=== PATIENT | female | born 1950 | race Caucasian/White ===

== ENCOUNTER 2023-11-08 19:18 | Observation (INO) ==
--- NOTE | 2023-11-08 20:14 | Emergency Department Note ---
History of Present Illness General Chief complaint: Dental/Oral Stated complaint: TOOTH INFECTION, TOOTH PAIN Time Seen by Provider: 11/08/23 19:37 History of Present Illness Maximum Pain Intensity: 8 This is a 72-year-old female that presents to the emergency department via private vehicle with complaints of "left-sided facial pain". The patient notes that over the past few days, beginning about 2 nights ago she has been experiencing left-sided facial pain and points to tooth #19 as location of discomfort. She denies any known trauma or injury. She states that she had a follow-up today with her dentist and was informed that she would need a root canal and is currently in search of an mate fourth. She took the start of a Medrol Dosepak and amoxicillin that was prescribed earlier today around 3 PM. She notes that despite this medicine the pain has continued. She also took a total of 2 oxycodone, last of which was around 3:30 PM with minimal relief. Patient notes that the pain continues to rise. Patient notes a history of latex allergy, Zanaflex allergy, tonsillectomy/adenoidectomy 1958, ORIF procedures, tethered cord, pulmonary fibrosis, asthma. No anticoagulant use. Home Medications Medication Instructions Recorded Confirmed Type Magnesium L Theonate 2,100 mg PO QAM 11/09/23 11/09/23 History albuterol sulfate 90 mcg/actuation 1 puff inhalation Q4 PRN Shortness 11/09/23 11/09/23 History aerosol inhaler Of Breath Or Wheezing bisoprolol fumarate 10 mg tablet 10 mg PO HS 11/09/23 11/09/23 History cholecalciferol (vitamin D3) 125 125 mcg PO DAILY 11/09/23 11/09/23 History mcg (5,000 unit) tablet (Vitamin D3) cyclobenzaprine 10 mg tablet 20 mg PO HS 11/09/23 11/09/23 History fluticasone furoate 100 1 ea inhalation DAILY 11/09/23 11/09/23 History mcg-vilanterol 25 mcg/dose inhalation powder (Breo Ellipta) gabapentin 300 mg capsule 300 mg PO BID 11/09/23 11/09/23 History gabapentin 300 mg capsule 600 mg PO QPM 11/09/23 11/09/23 History magnesium glycinate 100 mg (as 0 mg PO DAILY 11/09/23 11/09/23 History glycinate) tablet (Mag Glycinate) melatonin 10 mg tablet 10 mg PO HS 11/09/23 11/09/23 History naproxen sodium 220 mg tablet 220 mg PO BID 11/09/23 11/09/23 History (Aleve) omeprazole 20 mg capsule,delayed 20 mg PO DAILY 11/09/23 11/09/23 History release rosuvastatin 10 mg tablet 10 mg PO 3XWK 11/09/23 11/09/23 History tramadol 50 mg tablet 50 mg PO TID PRN Pain 11/09/23 11/09/23 History Past Med/Surg History Problem List (Updated 11/09/23 @ 03:13 by Anish Nelson PA-C) Phlegmon (Acute) Periapical abscess (Acute) Intractable pain (Acute) Swelling of left side of face (Acute) Dental infection (Acute) Social History Smoking Status: Never smoker Preferred Language: Belizean Feels Safe at Home: Yes Review of Systems A total of 10 systems reviewed and were otherwise negative Physical Exam Vital Signs Vital Signs - 24 hr 11/08/23 19:21 11/08/23 20:27 11/08/23 22:10 Temperature 36.6 C Temperature Source Temporal Artery Scan Pulse Rate 93 H 91 H Pulse Rate [Left Finger] Pulse Rhythm [Left Finger] Pulse Strength [Left Finger] Respiratory Rate 18 16 Respiratory Effort / Characteristics Respiratory Depth Respiratory Pattern Blood Pressure 173/83 H Blood Pressure [Right Arm] Blood Pressure Mean 113 Blood Pressure Mean [Right Arm] Pulse Oximetry 96 90 82 L Oxygen Delivery Method Room Air Room Air Room Air Oxygen Flow Rate Sepsis Recent Fever Within 48 Hours No Sepsis New/Unexplained Change in Mental Status N/A Sepsis Action Taken by Nursing No Action Required 11/08/23 22:12 11/08/23 22:37 11/08/23 23:00 Temperature Temperature Source Pulse Rate Pulse Rate [Left Finger] 83 89 Pulse Rhythm [Left Finger] Regular Pulse Strength [Left Finger] Normal Respiratory Rate 16 18 Respiratory Effort / Characteristics Non-Labored Respiratory Depth Normal Respiratory Pattern Regular Blood Pressure Blood Pressure [Right Arm] 150/73 H Blood Pressure Mean Blood Pressure Mean [Right Arm] 98 Pulse Oximetry 91 90 92 Oxygen Delivery Method Nasal Cannula Nasal Cannula Nasal Cannula Oxygen Flow Rate 2 2 2 Sepsis Recent Fever Within 48 Hours Sepsis New/Unexplained Change in Mental Status Sepsis Action Taken by Nursing 11/09/23 01:00 Temperature Temperature Source Pulse Rate 84 Pulse Rate [Left Finger] Pulse Rhythm [Left Finger] Pulse Strength [Left Finger] Respiratory Rate 18 Respiratory Effort / Characteristics Respiratory Depth Respiratory Pattern Blood Pressure 171/90 H Blood Pressure [Right Arm] Blood Pressure Mean 117 Blood Pressure Mean [Right Arm] Pulse Oximetry 95 Oxygen Delivery Method Nasal Cannula Oxygen Flow Rate 2 Sepsis Recent Fever Within 48 Hours Sepsis New/Unexplained Change in Mental Status Sepsis Action Taken by Nursing VITAL SIGNS - Vital signs and nursing notes were reviewed. Hypertensive, otherwise stable. GENERAL -72-year-old female appearing her stated age who is in no acute distress. Communicates well with provider and answers questions appropriately. SKIN - Without rashes. No meningeal or petechial rash. Soft tissue swelling noted overlying the right mandible just lateral to tooth #19 overlying the left posterior inferior molar region. HEAD - NC/AT. EYES - PERRL with EOMI bilaterally. Sclera anicteric. EARS - No deformities of external structures noted on gross examination bilaterally. External auditory canals without discharge or otorrhea. Tympanic membranes pearly fung without retraction or bulging. No fluid or purulent material visualized behind the TM. Handle of malleus, umbo, cone of light, pars tensa/flaccid all easily visualized. NOSE - Midline and without cyanosis. No epistaxis or purulent drainage noted. Septum midline without deviation or septal hematoma noted. MOUTH/OROPHARYNX - Without perioral cyanosis. Buccal mucosa pink and moist and without leukoplakia. Tongue midline with equal elevation of palate bilaterally. No tonsillar hypertrophy, erythema, or exudates noted. Good dentition noted. Small amount of gumline irritation noted around the left posterior inferior molar region. No drooling, stridor, trismus, wheezing or tripoding. Normal phonation. NECK - Neck with FROM. No nuchal rigidity. LUNGS - CTA CARDIAC - RRR NEUROLOGIC - Cranial nerves II through XII grossly intact. PSYCH -alert, oriented and pleasant on exam Course Administered Medications Discontinued Medications Acetaminophen (Acetaminophen 325 Mg Tab) 650 mg PO NOW STA Stop: 11/08/23 22:26 Last Admin: 11/08/23 22:34 Dose: 650 mg Documented By: [facility] [place] Ampicillin Sodium/Sulbactam Sodium 3,000 mg/ Sodium Chloride 100 mls @ 200 mls/hr IV NOW STA Stop: 11/08/23 22:50 Last Infusion: 11/09/23 00:09 Dose: Infused Documented By: Admin: 11/08/23 22:34 Dose: 200 mls/hr Documented By: [facility] [place] Ioversol (Optiray 320 100ml) 94 ml IV ONCE ONE Stop: 11/09/23 00:43 Last Admin: 11/09/23 00:41 Dose: 94 ml Documented By: KIRSTEN Ketorolac Tromethamine (Ketorolac Tromethamine 15 Mg/Ml Vial) 10 mg IV NOW ONE Stop: 11/08/23 21:21 Last Admin: 11/08/23 21:35 Dose: 10 mg Documented By: [facility] [place] Morphine Sulfate (Morphine Sulfate 2 Mg/Ml Carp) 2 mg IV NOW STA Stop: 11/08/23 20:12 Last Admin: 11/08/23 20:19 Dose: 2 mg Documented By: [facility] [place] Ondansetron HCl (Ondansetron Inj 2 Mg/Ml 2 Ml Vial) 4 mg IV NOW STA Stop: 11/08/23 20:12 Last Admin: 11/08/23 20:19 Dose: 4 mg Documented By: [facility] [place] Medical Decision Making Laboratory Data 11/08/23 20:24 11/08/23 20:24 Lab Results 11/08/23 Range/Units 20:24 WBC 7.05 (4.8-10.8) K/ul RBC 4.89 (4.20-5.40) M/uL Hgb 14.5 (12.0-16.0) g/dl Hct 43.5 (37.0-47.0) % MCV 89.0 (80.0-100.0) fL MCH 29.7 (25.0-34.0) pg MCHC 33.3 (32.0-36.0) g/dL RDW Std Deviation 41.7 (36.4-46.3) fL RDW Coeff of Chuy 12.8 (11.5-14.5) % Plt Count 128 L (130-400) K/uL MPV 11.4 (9.4-12.4) fL Immature Gran % (Auto) 0.4 % Neut % (Auto) 91.1 % Lymph % (Auto) 6.5 % Gregg % (Auto) 1.3 % Eos % (Auto) 0.1 % Baso % (Auto) 0.6 % Neut # (Auto) 6.42 (1.40-6.50) K/uL Lymph # (Auto) 0.46 L (1.20-3.40) K/uL Gregg # (Auto) 0.09 L (0.11-0.59) K/uL Eos # (Auto) 0.01 (0.00-0.50) K/uL Baso # (Auto) 0.04 (0.00-0.20) K/uL Immature Gran # (Auto) 0.03 (0.01-0.20) K/uL Polychromasia 1+ Sodium 140 (136-145) mmol/L Potassium 3.9 (3.5-5.1) mmol/L Chloride 105 (98-107) mmol/L Carbon Dioxide 26 (21-32) mmol/L Anion Gap 9 (3-11) BUN 23 (6-23) mg/dl Creatinine 0.72 (0.6-1.2) mg/dl Est Cr Clr Drug Dosing 65.9 ml/min Est GFR ( Amer) 98.3 ml/min Est GFR (Non-Af Amer) 84.9 ml/min BUN/Creatinine Ratio 31.9 H (10-20) Glucose 210 H (70-99(Fasting)) mg/dl Calcium 9.6 (8.6-10.3) mg/dl Imaging Data Radiologist's Impression: Soft Tissue Neck CT 11/09/23 00:08 Exam(s): CT NECK With Contrast IV Amt: 94 ml EXAM: CT Neck With Intravenous Contrast CLINICAL HISTORY: Reason for exam: L sided facial pain. TECHNIQUE: Axial computed tomography images of the neck with intravenous contrast. CTDI is 17.44 mGy and DLP is 443.61 mGy-cm. Automated exposure control was utilized for the study. A dose lowering technique was utilized adhering to the principles of ALARA. CONTRAST: Patient received 94 ml of IV contrast COMPARISON: No relevant prior studies available. FINDINGS: Oropharynx: Unremarkable. No significant tonsillar enlargement. No peritonsillar abscess. Hypopharynx: Unremarkable. Larynx: Unremarkable. Normal epiglottis. Trachea: Unremarkable. Retropharyngeal space: Unremarkable. Submandibular/parotid glands: Unremarkable. Glands are normal in size. Thyroid: Unremarkable. No enlarged or calcified nodules. Bones/joints: No acute fracture... Deon lucency about tooth #19 concerning for periapical abscess. Soft tissues: There is mild soft tissue swelling about the left lateral mandible concerning for inflammatory phlegmon from abscess tooth #19. Face. Vasculature: No acute findings. Lymph nodes: Unremarkable. No lymphadenopathy. Lung apices: Unremarkable as visualized. IMPRESSION: Findings concerning for periapical abscess about tooth #19 with adjacent periosteal phlegmon. Recommend dental consult. Electronically signed by: Lillian Abernathy MD 11/09/23 02:11 AM MDM Narrative Patient was seen and evaluated as above in room D03. Review was performed of triage nursing notes and vital signs. A thorough history and physical examination was performed. She presents to us today for evaluation of left- sided facial pain. She was seen by her dentist earlier today and noted issue with tooth #19 and is recommended to have a root canal performed. However despite several analgesics in the outpatient setting she continues with severe pain to the left side of the face. Options of care were discussed with the patient. IV access was established. Labs were drawn. IV analgesia was performed. She was medicated with 2 mg of IV morphine, 4 mg of IV Zofran noting that she has had morphine before she states without issue. Mild hypoxia noted and patient was placed on 2 L nasal cannula by me. Oxygen rebounded nicely. Patient's pain persisted. I did elect to hold off on additional narcotic analgesia noting the mild hypoxia following the small dose of morphine. Patient was also medicated with oral acetaminophen for pain. I did order IV Unasyn to cover the suspected dental infection. I did provide the patient a 10 mg dose of IV Toradol. Labs reveal no leukocytosis or concerning anemia. No emergent metabolic disturbance. Mild hyperglycemia. With the persistence of significant pain despite analgesia in the outpatient setting and here intravenously and with suspected infection, I do believe that further evaluation and management is warranted in the inpatient setting. Patient case discussed with the hospitalist service. Please refer to further documentation regarding her stay. I did also add a CT soft tissue neck with IV contrast with results as above. Findings are concerning for periapical abscess about tooth #19 with adjacent periosteal phlegmon. GCS: 15 In the evaluation and treatment of this patient, the following differential diagnoses were considered: Periapical Abscess, Osteonecrosis of the Jaw, Dental Fracture, Dental Caries, Trey's Angina, Vincent's Angina, Facial Cellulitis. Impression & Plan Dental infection, Swelling of left side of face, Intractable pain, Periapical abscess, Phlegmon Discharge Plan Visit Data Chief Complaint: Dental/Oral Stated Complaint: TOOTH INFECTION, TOOTH PAIN ED Provider: Cosme Padgett ED Midlevel Provider: Anish Nelson Discharge Problem: Dental infection, Swelling of left side of face, Intractable pain, Periapical abscess, Phlegmon Patient Disposition: Admitted As Inpatient Condition: Good Discharge Instructions Interventions: ED Discharge Assessment Last Done: 11/09/23 02:13
[2023-11-08] MEDS: MoRPHine SULFATE 2 MG/ML CARP IV STA (20:19)
[2023-11-08] MEDS: ONDANSETRON INJ 2 MG/ML 2 ML VIAL IV STA (20:19)
--- NOTE | 2023-11-08 20:49 | Emergency Department Note ---
ED Visit Note I was consulted by the Advanced Practice Provider. I personally made/approved the management plan and take responsibility for the patient management. I performed a substantive portion of the visit. This includes the aspects of: -History/Physical -MDM .
[2023-11-08 20:55] LABS: BUN Creatinine Ratio 31.9 (10-20); Calcium 9.6 mg/dl (8.6-10.3); Creatinine Clr Calc Pharmacy 65.9 ml/min; Est GFR (African American) 98.3 ml/min; Est GFR (Non-African American) 84.9 ml/min; Potassium 3.9 mmol/L (3.5-5.1)
[2023-11-08] MEDS: KETOROLAC TROMETHAMINE 15 MG/ML VIAL IV ONE (21:35)
[2023-11-08 21:37] LABS: Hematocrit (blood only) 43.5 % (37.0-47.0); Hemoglobin 14.5 g/dl (12.0-16.0); Mean Corpuscular Hemoglobin 29.7 pg (25.0-34.0); Mean Corpuscular Hgb Conc 33.3 g/dL (32.0-36.0); Mean Platelet Volume 11.4 fL (9.4-12.4); Platelet Count 128 K/uL (130-400); RDW Coefficient of Variation 12.8 % (11.5-14.5); RDW Standard Deviation 41.7 fL (36.4-46.3); Red Blood Count 4.89 M/uL (4.20-5.40); White Blood Count 7.05 K/ul (4.8-10.8)
[2023-11-08 21:38] LABS: Basophils # (auto) 0.04 K/uL (0.00-0.20); Basophils % (auto) 0.6 %; Eosinophils # (auto) 0.01 K/uL (0.00-0.50); Eosinophils % (auto) 0.1 %; Immature Granulocytes # (auto) 0.03 K/uL (0.01-0.20); Immature Granulocytes % (auto) 0.4 %; Lymphocytes # (auto) 0.46 K/uL (1.20-3.40); Lymphocytes % (auto) 6.5 %; Monocytes # (auto) 0.09 K/uL (0.11-0.59); Monocytes % (auto) 1.3 %; Neutrophils # (auto) 6.42 K/uL (1.40-6.50); Neutrophils % (auto) 91.1 %; Polychromasia 1+
[2023-11-08] MEDS: ACETAMINOPHEN 325 MG TAB PO STA (22:34)
[2023-11-08] MEDS: AMPICILLIN/SULBACTAM SOD 3,000 MG in SODIUM CHLOR 0.9% MINI-B 100 ML IV STA (22:34)
[2023-11-09] MEDS: OPTIRAY 320 100ml IV ONE (00:41)
--- NOTE | 2023-11-09 01:41 | History & Physical Report ---
Date of Service November 09, 2023 Assessment & Plan (1) Phlegmon: (2) Periapical abscess: (3) Intractable pain: (4) Swelling of left side of face: (5) Dental infection: (6) Hypertension: (7) Lumbar back pain with radiculopathy affecting left lower extremity: (8) GERD (gastroesophageal reflux disease): (9) Pulmonary fibrosis: (10) Neurogenic bladder: (11) History of tethered spinal cord: Plan Dental infection/phlegmon/periapical abscess/swelling and pain left side of face- Continue Unasyn 3 g IV every 6 hours begun in the ED Zofran 4 mg IV every 6 hours as needed Tramadol 50 mg by mouth every 3 times daily as needed for moderate pain Acetaminophen 650 mg by mouth every 6 hours as needed for mild pain Morphine sulfate 3 mg IV every 4 hours as needed for severe pain, to be premedicated with DuoNeb due to mild hypoxia in the ED Hold Medrol Dosepak and amoxicillin from the outpatient setting Consult Dr. Lyons Hypertension- Continue bisoprolol 10 mg p.o. daily Pulmonary fibrosis/hypersensitivity pneumonitis- Continue nasal cannula O2, with titration goal 92% Continue routine inhalers Breo ellipta DuoNebs every 2 hours as needed, in particular premedication prior to receiving morphine Tethered spinal cord at L4-5/history of spina bifida/left lower extremity radic ulopathy- Continue gabapentin and tramadol History of Present Illness Chief Complaint: The patient presents to the emergency department with complaint of left-sided dental and facial pain over the past few days, having woken up with the pain 2 nights ago. She reports that she woke up with worse pain this a.m., has been se en by her dentist who did x-rays and said that she had need for a root canal. She was placed on Medrol Dosepak and amoxicillin by her dentist. 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 She presents to the emergency department symptoms as noted above. Due to pain not being controlled by morphine, Toradol and Tylenol, she was referred for evaluation for admission to the medical service Allergies Allergy/AdvReac Type Severity Reaction Status Date / Time latex Allergy Rash Verified 11/09/23 03:35 tizanidine [From Zanaflex] AdvReac Hallucinati Verified 11/09/23 03:35 ng Home Medications Medication Instructions Recorded Confirmed Type Magnesium L Theonate 2,100 mg PO QAM 11/09/23 11/09/23 History albuterol sulfate 90 mcg/actuation 1 puff inhalation Q4 PRN Shortness 11/09/23 11/09/23 History aerosol inhaler Of Breath Or Wheezing bisoprolol fumarate 10 mg tablet 10 mg PO HS 11/09/23 11/09/23 History cholecalciferol (vitamin D3) 125 125 mcg PO DAILY 11/09/23 11/09/23 History mcg (5,000 unit) tablet (Vitamin D3) cyclobenzaprine 10 mg tablet 20 mg PO HS 11/09/23 11/09/23 History fluticasone furoate 100 1 ea inhalation DAILY 11/09/23 11/09/23 History mcg-vilanterol 25 mcg/dose inhalation powder (Breo Ellipta) gabapentin 300 mg capsule 300 mg PO BID 11/09/23 11/09/23 History gabapentin 300 mg capsule 600 mg PO QPM 11/09/23 11/09/23 History magnesium glycinate 100 mg (as 0 mg PO DAILY 11/09/23 11/09/23 History glycinate) tablet (Mag Glycinate) melatonin 10 mg tablet 10 mg PO HS 11/09/23 11/09/23 History naproxen sodium 220 mg tablet 220 mg PO BID 11/09/23 11/09/23 History (Aleve) omeprazole 20 mg capsule,delayed 20 mg PO DAILY 11/09/23 11/09/23 History release rosuvastatin 10 mg tablet 10 mg PO 3XWK 11/09/23 11/09/23 History tramadol 50 mg tablet 50 mg PO TID PRN Pain 11/09/23 11/09/23 History Past Med/Surg History Problem List (Updated 11/09/23 @ 04:05 by Jose Bocanegra MD) History of tethered spinal cord Neurogenic bladder Pulmonary fibrosis GERD (gastroesophageal reflux disease) Lumbar back pain with radiculopathy affecting left lower extremity Hypertension Phlegmon (Acute) Periapical abscess (Acute) Intractable pain (Acute) Swelling of left side of face (Acute) Dental infection (Acute) Social History Smoking Status: Never smoker Hx Alcohol Use: Yes Alcohol type: wine and hard liquor Hx Substance Use: No Preferred Language: Macanese Communication Ability: Effective Administration Internship Required: No Beliefs That Will Affect Care: None Current Living Situation: Spouse Feels Safe at Home: Yes Review of Systems Review of Systems: The patient denies chest pain, palpitations, shortness of breath, dyspnea on exertion, cough, lower extremity swelling, fevers, chills, sweats, nausea, vomiting, diarrhea , constipation, abdominal pain, pelvic pain, blood in urine or stool, dysuria, urinary frequency or urgency, lightheadedness, dizziness, headache, memory loss, loss of consciousness, rash, abnormal bruising or bleeding, imbalance, focal or generalized weakness, numbness or tingling in arms or legs, generalized arthralgias or myalgias, back or neck pain, or night sweats. The review of systems is otherwise negative other than for that already noted above, and at least 10 systems have been reviewed. Physical Exam Physical Exam: The patient is awake, alert and oriented 3, well developed and well nourished, normocephalic and atraumatic, lying in bed and in no acute distress. HEENT--PERRL, EOMI, mucous membranes and oropharynx dry. Mild left-sided facial swelling and tenderness Neck--supple. No JVD. No bruits. Thyroid normal, trachea midline, no adenopathy. Heart--normal S1 and S2. No murmurs, rubs or gallops. Lungs--clear bilaterally, no respiratory distress, no accessory muscle use. Abdomen--normal bowel sounds and soft. Nontender. Nondistended, no hernias or masses, no organomegaly. Extremities--no cyanosis or clubbing. No edema. Dermatologic--normal skin turgor, normal color, no abnormal lymph nodes, no rash. Neurologic--cranial nerves II through XII grossly intact. Rheumatologic--normal range of motion. Psychiatric--normal affect. Results & Data Results & Data Vital Signs (Past 12 Hours) Vital Signs Temp Pulse Pulse Resp BP BP Pulse Ox 11/09/23 01:00 84 18 171/90 H 95 11/08/23 23:00 89 18 150/73 H 92 11/08/23 22:37 83 16 90 11/08/23 22:12 91 11/08/23 22:10 82 L 11/08/23 20:27 91 H 16 90 11/08/23 19:21 36.6 C 93 H 18 173/83 H 96 O2 Del Method O2 Flow Rate 11/09/23 01:00 Nasal Cannula 2 11/08/23 23:00 Nasal Cannula 2 11/08/23 22:37 Nasal Cannula 2 11/08/23 22:12 Nasal Cannula 2 11/08/23 22:10 Room Air 11/08/23 20:27 Room Air 11/08/23 19:21 Room Air Laboratory Results Laboratory Results WBC 7.05 K/ul (4.8-10.8) 11/08/23 20:24 RBC 4.89 M/uL (4.20-5.40) 11/08/23 20:24 Hgb 14.5 g/dl (12.0-16.0) 11/08/23 20:24 Hct 43.5 % (37.0-47.0) 11/08/23 20:24 MCV 89.0 fL (80.0-100.0) 11/08/23 20:24 MCH 29.7 pg (25.0-34.0) 11/08/23 20:24 MCHC 33.3 g/dL (32.0-36.0) 11/08/23 20:24 RDW Std Deviation 41.7 fL (36.4-46.3) 11/08/23 20:24 RDW Coeff of Chuy 12.8 % (11.5-14.5) 11/08/23 20:24 Plt Count 128 K/uL (130-400) L 11/08/23 20:24 MPV 11.4 fL (9.4-12.4) 11/08/23 20:24 Immature Gran % (Auto) 0.4 % 11/08/23 20:24 Neut % (Auto) 91.1 % 11/08/23 20:24 Lymph % (Auto) 6.5 % 11/08/23 20:24 Prentiss % (Auto) 1.3 % 11/08/23 20:24 Eos % (Auto) 0.1 % 11/08/23 20:24 Baso % (Auto) 0.6 % 11/08/23 20:24 Neut # (Auto) 6.42 K/uL (1.40-6.50) 11/08/23 20:24 Lymph # (Auto) 0.46 K/uL (1.20-3.40) L 11/08/23 20:24 Prentiss # (Auto) 0.09 K/uL (0.11-0.59) L 11/08/23 20:24 Eos # (Auto) 0.01 K/uL (0.00-0.50) 11/08/23 20:24 Baso # (Auto) 0.04 K/uL (0.00-0.20) 11/08/23 20:24 Immature Gran # (Auto) 0.03 K/uL (0.01-0.20) 11/08/23 20:24 Polychromasia 1+ 11/08/23 20:24 Sodium 140 mmol/L (136-145) 11/08/23 20:24 Potassium 3.9 mmol/L (3.5-5.1) 11/08/23 20:24 Chloride 105 mmol/L (98-107) 11/08/23 20:24 Carbon Dioxide 26 mmol/L (21-32) 11/08/23 20:24 Anion Gap 9 (3-11) 11/08/23 20:24 BUN 23 mg/dl (6-23) 11/08/23 20:24 Creatinine 0.72 mg/dl (0.6-1.2) 11/08/23 20:24 Est Cr Clr Drug Dosing 65.9 ml/min 11/08/23 20:24 Est GFR ( Amer) 98.3 ml/min 11/08/23 20:24 Est GFR (Non-Af Amer) 84.9 ml/min 11/08/23 20:24 BUN/Creatinine Ratio 31.9 (10-20) H 11/08/23 20:24 Glucose 210 mg/dl (70-99(Fasting)) H 11/08/23 20:24 Calcium 9.6 mg/dl (8.6-10.3) 11/08/23 20:24 Impressions Soft Tissue Neck CT 11/09/23 00:08 Exam(s): CT NECK With Contrast IV Amt: 94 ml EXAM: CT Neck With Intravenous Contrast CLINICAL HISTORY: Reason for exam: L sided facial pain. TECHNIQUE: Axial computed tomography images of the neck with intravenous contrast. CTDI is 17.44 mGy and DLP is 443.61 mGy-cm. Automated exposure control was utilized for the study. A dose lowering technique was utilized adhering to the principles of ALARA. CONTRAST: Patient received 94 ml of IV contrast COMPARISON: No relevant prior studies available. FINDINGS: Oropharynx: Unremarkable. No significant tonsillar enlargement. No peritonsillar abscess. Hypopharynx: Unremarkable. Larynx: Unremarkable. Normal epiglottis. Trachea: Unremarkable. Retropharyngeal space: Unremarkable. Submandibular/parotid glands: Unremarkable. Glands are normal in size. Thyroid: Unremarkable. No enlarged or calcified nodules. Bones/joints: No acute fracture... Deon lucency about tooth #19 concerning for periapical abscess. Soft tissues: There is mild soft tissue swelling about the left lateral mandible concerning for inflammatory phlegmon from abscess tooth #19. Face. Vasculature: No acute findings. Lymph nodes: Unremarkable. No lymphadenopathy. Lung apices: Unremarkable as visualized. IMPRESSION: Findings concerning for periapical abscess about tooth #19 with adjacent periosteal phlegmon. Recommend dental consult. Electronically signed by: Lillian Abernathy MD 11/09/23 02:11 AM Code Status & VTE Plan Code Status Full code VTE Prophylaxis Plan VTE Prophylaxis will be ordered: Yes PG Care Time/CCT Total # of Minutes Spent Total Time Spent with Patient: Total time spent is greater than 50% in coordination of care (as documented) at patient's floor/unit and/or counseling patient: Coding Level of Care Code 74303 INT INP/OBS CARE 3/75MIN Diagnoses Phlegmon L02.91 Periapical abscess K04.7 Intractable pain R52 Swelling of left side of face R22.0 Dental infection K04.7 Hypertension I10 Lumbar back pain with radiculopathy affecting left lower extremity M54.16 GERD (gastroesophageal reflux disease) K21.9 Pulmonary fibrosis J84.10 Neurogenic bladder N31.9 History of tethered spinal cord Z86.69
--- NOTE | 2023-11-09 02:11 | CT Scan Report ---
Exam(s): CT NECK With Contrast IV Amt: 94 ml EXAM: CT Neck With Intravenous Contrast CLINICAL HISTORY: Reason for exam: L sided facial pain. TECHNIQUE: Axial computed tomography images of the neck with intravenous contrast. CTDI is 17.44 mGy and DLP is 443.61 mGy-cm. Automated exposure control was utilized for the study. A dose lowering technique was utilized adhering to the principles of ALARA. CONTRAST: Patient received 94 ml of IV contrast COMPARISON: No relevant prior studies available. FINDINGS: Oropharynx: Unremarkable. No significant tonsillar enlargement. No peritonsillar abscess. Hypopharynx: Unremarkable. Larynx: Unremarkable. Normal epiglottis. Trachea: Unremarkable. Retropharyngeal space: Unremarkable. Submandibular/parotid glands: Unremarkable. Glands are normal in size. Thyroid: Unremarkable. No enlarged or calcified nodules. Bones/joints: No acute fracture... Deon lucency about tooth #19 concerning for periapical abscess. Soft tissues: There is mild soft tissue swelling about the left lateral mandible concerning for inflammatory phlegmon from abscess tooth #19. Face. Vasculature: No acute findings. Lymph nodes: Unremarkable. No lymphadenopathy. Lung apices: Unremarkable as visualized. IMPRESSION: Findings concerning for periapical abscess about tooth #19 with adjacent periosteal phlegmon. Recommend dental consult. Electronically signed by: Lillian Abernahty MD 11/09/23 02:11 AM
[2023-11-09] MEDS ORDERED: ONDANSETRON INJ 2 MG/ML 2 ML VIAL IV PRN (02:13)
[2023-11-09] MEDS ORDERED: ALBUT/IPRATROP 3MG/0.5MG NEB 3 ML VIAL NEB PRN (02:13)
[2023-11-09] MEDS: Patient's ALLERGY Info needs ENTERED STA (03:47)
[2023-11-09] MEDS: traMADol HCL 50 MG TABLET PO PRN (03:50)
[2023-11-09] MEDS: AMPICILLIN/SULBACTAM SOD 3,000 MG in SODIUM CHLOR 0.9% MINI-B 100 ML IV SCH (05:14)
[2023-11-09] MEDS: MoRPHine SULFATE 4 MG/ML 1 ML CARP\\VIAL IV PRN (06:23)
[2023-11-09 06:37] LABS: Basophils # (auto) 0.01 K/uL (0.00-0.20); Basophils % (auto) 0.1 %; Hematocrit (blood only) 41.7 % (37.0-47.0); Hemoglobin 13.8 g/dl (12.0-16.0); Immature Granulocytes # (auto) 0.04 K/uL (0.01-0.20); Immature Granulocytes % (auto) 0.5 %; Lymphocytes # (auto) 0.75 K/uL (1.20-3.40); Lymphocytes % (auto) 8.8 %; Mean Corpuscular Hemoglobin 29.4 pg (25.0-34.0); Mean Corpuscular Hgb Conc 33.1 g/dL (32.0-36.0); Mean Corpuscular Volume 88.9 fL (80.0-100.0); Mean Platelet Volume 11.7 fL (9.4-12.4); Monocytes # (auto) 0.42 K/uL (0.11-0.59); Monocytes % (auto) 4.9 %; Neutrophils # (auto) 7.35 K/uL (1.40-6.50); Neutrophils % (auto) 85.7 %; Platelet Count 134 K/uL (130-400); RDW Coefficient of Variation 12.8 % (11.5-14.5); RDW Standard Deviation 41.3 fL (36.4-46.3); Red Blood Count 4.69 M/uL (4.20-5.40); White Blood Count 8.57 K/ul (4.8-10.8)
[2023-11-09 06:56] LABS: Albumin Globulin Ratio 1.6 (0.9-2); Albumin Level 4.1 gm/dl (3.4-5.0); BUN Creatinine Ratio 28.6 (10-20); Bilirubin,Total 0.8 mg/dl (0.2-1.0); Calcium 9.3 mg/dl (8.6-10.3); Creatinine Clr Calc Pharmacy 75.3 ml/min; Est GFR (African American) 105.3 ml/min; Est GFR (Non-African American) 90.9 ml/min; Globulin 2.5 gm/dl (2.5-4.0); Magnesium 2.1 mg/dl (1.7-2.4); Potassium 4.1 mmol/L (3.5-5.1); Total Protein 6.6 gm/dl (6.0-8.3)
[2023-11-09 07:24] LABS: Estimated Average Glucose 105 mg/dl; Hemoglobin A1C 5.3 % (4.5-5.6)
--- NOTE | 2023-11-09 07:36 | Hospitalist Progress Note ---
Date of Service November 09, 2023 Assessment & Plan (1) Periapical abscess: Plan: Dental infection/phlegmon/periapical abscess/swelling and pain left side of face- CT soft tissue/neck w/ findings concerning for periapical abscess about tooth #19 with adjacent periosteal phlegmon. Recommend dental consult. Continue Unasyn 3 g IV every 6 hours, begun in the ED Zofran 4 mg IV every 6 hours as needed Tramadol 50 mg by mouth every 3 times daily as needed for moderate pain Acetaminophen 650 mg by mouth every 6 hours as needed for mild pain Morphine sulfate 3 mg IV every 4 hours as needed for severe pain, to be premedicated with DuoNeb due to mild hypoxia in the ED Hold Medrol Dosepak and amoxicillin from the outpatient setting Consult Dr. Lyons, did send message this morning just in case not already notified as do not see nursing intervention/notified provider at this time and is NPO He will see this afternoon/likely need for OR, to be discussed w/ patient and she is aware of continued NPO/eval by Dr Lyons this afternoon when available Had prior teeth cleaning and ?start of her infection, could be. Morphine effective, tramadol not really. Did get dose Toradol IV in ER overnight which was helpful and asked RN to provide 15mg IV x 1 now and making q6h prn Check CXR/EKG in event need for surgery, carlotta in light of hypoxia w/ morphine use/hx pulm fibrosis -- Adding IVF NSS while NPO given dry mm on exam but monitor for any breathing issues --CXR negative for acute process, does note hemidiaphragm elevation. Incentive spirometry added/to encourage updated on plan at bedside in ER 11/08 Monitor exam/labs on repeat (2) Pulmonary fibrosis: Plan: Pulmonary fibrosis/hypersensitivity pneumonitis- Continue nasal cannula O2, with titration goal 92% Continue routine inhalers Breo ellipta DuoNebs every 2 hours as needed, in particular premedication prior to receiving morphine Incentive spirometer added Toradol added for pain control given suspect will be more effective. morphine available prn w/ supp o2 to maintain sats. CXR neg (3) Hypertension: Plan: Hypertension/HLD Slight elevation 154/91 but not confused/focal deficits. Suspect some elevation from pain. Adjustment to regimen as outlined above Continue bisoprolol 10 mg p.o. 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/history of spina bifida/left lower extremity radiculopathy- Continue gabapentin and tramadol, toradol as above (5) Phlegmon: (6) Intractable pain: (7) Swelling of left side of face: (8) Dental infection: (9) Lumbar back pain with radiculopathy affecting left lower extremity: (10) GERD (gastroesophageal reflux disease): Plan: ppi daily continued , no issues reported (11) Neurogenic bladder: Plan continued inpatient stay, NPO until eval by Dr Lyons for possible OR this afternoon Admission and Anticipated Discharge Date Admission Date: November 09, 2023 Subjective BRIDGE NOTE: ADMITTED AFTER MIDNIGHT Evaluated in ER< room C4. at bedside. Pain to her mouth on the right side but also having upper jaw discomfort but did have recent cleaning and injection by dentist yesterday for pain control (some bruising to back L upper of her mouth/gum area). Discussed toradol, tramadol wasn't very effective. Had been using mouth wash. 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 Asked RN to administer toradol IV now, and available prn discussed w/ patient. Is on supplemental O2, no SOB and related to morphine use. Discussed I messaged Dr Lyons and he rec to keep NPO and will eval this afternoon and potential need for OR. No issues w/ anesthesia reported. Does have hx pulm fibrosis. No CP, abdominal pain, nausea. No issues with swallowing. Questions/concerns addressed at this time. Physical Exam Physical Exam: The patient is awake, alert and oriented 3, well developed and well nourished, normocephalic and atraumatic, lying in bed and in no acute distress. at bedside HEENT--PERRL, EOMI, mucous membranes and oropharynx dry. Mild left-sided facial swelling and tenderness (upper jaw on the left as well) R back #19 tooth +tenderness, no active drainage Neck--supple. No JVD. No bruits. Thyroid normal, trachea midline, no adenopathy. Heart--normal S1 and S2. No murmurs, rubs or gallops. Lungs--clear bilaterally, no respiratory distress, no accessory muscle use, on 2L NC post-morphine use Abdomen--normal bowel sounds and soft. Nontender. Nondistended, no hernias or masses, no organomegaly. Extremities--no cyanosis or clubbing. No edema. Dermatologic--normal skin turgor, normal color, no abnormal lymph nodes, no rash. Neurologic--cranial nerves II through XII grossly intact. Rheumatologic--normal range of motion. Psychiatric--normal affect. Results & Data Results & Data Vital Signs (Past 12 Hours) Vital Signs Pulse Pulse Resp BP BP Pulse Ox O2 Del Method 11/09/23 03:27 64 18 97 Room Air 11/09/23 02:00 80 18 96 Nasal Cannula 11/09/23 01:00 84 18 171/90 H 95 Nasal Cannula 11/08/23 23:00 89 18 150/73 H 92 Nasal Cannula 11/08/23 22:37 83 16 90 Nasal Cannula 11/08/23 22:12 91 Nasal Cannula 11/08/23 22:10 82 L Room Air 11/08/23 20:27 91 H 16 90 Room Air O2 Flow Rate 11/09/23 03:27 11/09/23 02:00 2 11/09/23 01:00 2 11/08/23 23:00 2 11/08/23 22:37 2 11/08/23 22:12 2 11/08/23 22:10 11/08/23 20:27 Laboratory Results 11/09/23 11/08/23 Range/Units 05:58 20:24 WBC 8.57 7.05 (4.8-10.8) K/ul RBC 4.69 4.89 (4.20-5.40) M/uL Hgb 13.8 14.5 (12.0-16.0) g/dl Hct 41.7 43.5 (37.0-47.0) % MCV 88.9 89.0 (80.0-100.0) fL MCH 29.4 29.7 (25.0-34.0) pg MCHC 33.1 33.3 (32.0-36.0) g/dL RDW Std Deviation 41.3 41.7 (36.4-46.3) fL RDW Coeff of Chuy 12.8 12.8 (11.5-14.5) % Plt Count 134 128 L (130-400) K/uL MPV 11.7 11.4 (9.4-12.4) fL Immature Gran % (Auto) 0.5 0.4 % Neut % (Auto) 85.7 91.1 % Lymph % (Auto) 8.8 6.5 % [place] % (Auto) 4.9 1.3 % Eos % (Auto) 0.0 0.1 % Baso % (Auto) 0.1 0.6 % Neut # (Auto) 7.35 H 6.42 (1.40-6.50) K/uL Lymph # (Auto) 0.75 L 0.46 L (1.20-3.40) K/uL [place] # (Auto) 0.42 0.09 L (0.11-0.59) K/uL Eos # (Auto) 0.00 0.01 (0.00-0.50) K/uL Baso # (Auto) 0.01 0.04 (0.00-0.20) K/uL Immature Gran # (Auto) 0.04 0.03 (0.01-0.20) K/uL Polychromasia 1+ Sodium 141 140 (136-145) mmol/L Potassium 4.1 3.9 (3.5-5.1) mmol/L Chloride 106 105 (98-107) mmol/L Carbon Dioxide 28 26 (21-32) mmol/L Anion Gap 7 9 (3-11) BUN 18 23 (6-23) mg/dl Creatinine 0.63 0.72 (0.6-1.2) mg/dl Est Cr Clr Drug Dosing 75.3 65.9 ml/min Est GFR ( Amer) 105.3 98.3 ml/min Est GFR (Non-Af Amer) 90.9 84.9 ml/min BUN/Creatinine Ratio 28.6 H 31.9 H (10-20) Glucose 137 H 210 H (70-99(Fasting)) mg/dl Estimat Average Glucose 105 mg/dl Hemoglobin A1c 5.3 (4.5-5.6) % Calcium 9.3 9.6 (8.6-10.3) mg/dl Magnesium 2.1 (1.7-2.4) mg/dl Total Bilirubin 0.8 (0.2-1.0) mg/dl AST 18 (13-39) U/L ALT 11 (7-52) U/L Alkaline Phosphatase 90 (34-104) U/L Total Protein 6.6 (6.0-8.3) gm/dl Albumin 4.1 (3.4-5.0) gm/dl Globulin 2.5 (2.5-4.0) gm/dl Albumin/Globulin Ratio 1.6 (0.9-2) Diagnostic Findings Soft Tissue Neck CT 11/09/23 00:08 Exam(s): CT NECK With Contrast IV Amt: 94 ml EXAM: CT Neck With Intravenous Contrast CLINICAL HISTORY: Reason for exam: L sided facial pain. TECHNIQUE: Axial computed tomography images of the neck with intravenous contrast. CTDI is 17.44 mGy and DLP is 443.61 mGy-cm. Automated exposure control was utilized for the study. A dose lowering technique was utilized adhering to the principles of ALARA. CONTRAST: Patient received 94 ml of IV contrast COMPARISON: No relevant prior studies available. FINDINGS: Oropharynx: Unremarkable. No significant tonsillar enlargement. No peritonsillar abscess. Hypopharynx: Unremarkable. Larynx: Unremarkable. Normal epiglottis. Trachea: Unremarkable. Retropharyngeal space: Unremarkable. Submandibular/parotid glands: Unremarkable. Glands are normal in size. Thyroid: Unremarkable. No enlarged or calcified nodules. Bones/joints: No acute fracture... Deon lucency about tooth #19 concerning for periapical abscess. Soft tissues: There is mild soft tissue swelling about the left lateral mandible concerning for inflammatory phlegmon from abscess tooth #19. Face. Vasculature: No acute findings. Lymph nodes: Unremarkable. No lymphadenopathy. Lung apices: Unremarkable as visualized. IMPRESSION: Findings concerning for periapical abscess about tooth #19 with adjacent periosteal phlegmon. Recommend dental consult. Electronically signed by: Lillian Abernathy MD 11/09/23 02:11 AM Chest X-Ray 11/09/23 07:40 XR chest 1V portable HISTORY: 72 years-old Female potential OR, pre-op preoperative exam COMPARISON: None TECHNIQUE: AP view of the chest FINDINGS: Cardiomediastinal select the normal limits. Right hemidiaphragmatic elevation. Sigmoidal thoracolumbar scoliosis. No pneumothorax, pleural effusion or airspace consolidation. IMPRESSION: No acute process. ACT 112: Negative or not required by law. The above report was generated using voice recognition software. It may contain grammatical, syntax or spelling errors. Electronically signed by: Tim Yee M.D. 11/09/2023 8:02 AM PG Care Time/CCT Total # of Minutes Spent Total Time Spent with Patient: Total time spent is greater than 50% in coordination of care (as documented) at patient's floor/unit and/or counseling patient: Coding Level of Care Code None Diagnoses Periapical abscess K04.7 Pulmonary fibrosis J84.10 Hypertension I10 History of tethered spinal cord Z86.69 Phlegmon L02.91 Intractable pain R52 Swelling of left side of face R22.0 Dental infection K04.7 Lumbar back pain with radiculopathy affecting left lower extremity M54.16 GERD (gastroesophageal reflux disease) K21.9 Neurogenic bladder N31.9
--- NOTE | 2023-11-09 08:03 | XRay Report ---
XR chest 1V portable HISTORY: 72 years-old Female potential OR, pre-op preoperative exam COMPARISON: None TECHNIQUE: AP view of the chest FINDINGS: Cardiomediastinal select the normal limits. Right hemidiaphragmatic elevation. Sigmoidal thoracolumba r scoliosis. No pneumothorax, pleural effusion or airspace consolidation. IMPRESSION: No acute process. ACT 112: Negative or not required by law. The above report was generated using voice recognition software. It may contain grammatical, syntax o r spelling errors. Electronically signed by: Tim Yee M.D. 11/09/2023 8:02 AM
[2023-11-09] MEDS: FLUTICASONE/VILANTEROL 100/25MCG 14 PUFFS/INHALER INH SCH (08:52)
[2023-11-09] MEDS: GABAPENTIN 300 MG CAP PO SCH ×2 (08:52→15:28)
[2023-11-09] MEDS: PANTOprazole 40 MG TAB PO SCH (08:52)
[2023-11-09] MEDS: SODIUM CHLORIDE 0.9% 1,000 ML IV SCH (09:17)
--- NOTE | 2023-11-09 11:01 | Oral/Maxillofacial Consult ---
Date of Consultation November 09, 2023 Assessment & Plan (1) Periapical abscess: (2) Intractable pain: (3) Swelling of left side of face: (4) Dental infection: (5) Phlegmon: History of Present Illness Attending Physician: Nuha Quigley MD History of Present Illness I was asked to evaluate Amanda Borjas a 72 y/o with a left submandibular and subperiosteal infection swelling associated with abscess of tooth # 19. Her pain is very intense and need Morphine for pain control. I evaluated her at bedside room 355 for an I&D of the left subperiosteal space and submandibular area. Her oral care is excellent and there is no reason to extract the # 19 bridge abutment. A root canal is the preferred treatment . Mrs Borjas agrees with my suggestion and we will preform the I&D tomorrow AM. I will refer her to Dr Plascencia`s endodontic practice for continued care once the infection is controlled for evaluation of a root canal on tooth # 19. I did discuss that if I extract # 19 the bridge will need to be cut off to allow access to extract the infected tooth, in my opinion keeping the tooth with a future root canal is the best option. Diagnosis Periapical abscess K04.7 Intractable pain R52 Swelling of left side of face R22.0 Dental infection K04.7 Phlegmon L02.91 Surgical plan CPT 04974 intraoral I&D Chief Complaint: The patient presents to the emergency department last night with complaint of left-sided dental and facial pain over the past few days, having woken up with the pain 2 nights ago. She reports that she woke up with worse pain this a.m., has been seen by her dentist who did x-rays and said that she had need for a root canal. She was placed on Medrol Dosepak and amoxicillin by her dentist. Due to worsening pain not controlled by tramadol or oxycodone at home, she presented to the ED for assessment this evening at [facility]. The patient is a 72-year-old female with a past medical history including pulmonary fibrosis secondary to hypersensitivity pneumonitis, hypertension, tethered spinal cord L4-5 secondary to spina bifida, neurogenic bladder, left lower extremity radiculopathy, hyperlipidemia and GERD. She presents to the emergency department symptoms as noted above. Due to pain not being controlled by morphine, Toradol and Tylenol, she was referred for evaluation for admission to the medical service EXAM: CT Neck With Intravenous Contrast CLINICAL HISTORY: Reason for exam: L sided facial pain. FINDINGS: Oropharynx: Unremarkable. No significant tonsillar enlargement. No peritonsillar abscess. Hypopharynx: Unremarkable. Larynx: Unremarkable. Normal epiglottis. Trachea: Unremarkable. Retropharyngeal space: Unremarkable. Submandibular/parotid glands: Unremarkable. Glands are normal in size. Thyroid: Unremarkable. No enlarged or calcified nodules. Bones/joints: No acute fracture... Radiolucency about tooth #19 concerning for periapical abscess. Soft tissues: There is mild soft tissue swelling about the left lateral mandible concerning for inflammatory phlegmon from abscess tooth #19. Face. Vasculature: No acute findings. Lymph nodes: Unremarkable. No lymphadenopathy. Lung apices: Unremarkable as visualized. IMPRESSION: Findings concerning for periapical abscess about tooth #19 with adjacent periosteal phlegmon. Recommend dental consult. Tooth # 19 is a bridge abutment for a 3 unit bridge from () The tooth was recommended for root canal. Plan I will take Mrs. Borjas to the OR tomorrow AM for a subperiosteal intraoral I&D. She should be able to be discharged Saturday AM once her intense pain can be controlled with oral Meds I will refer her for endodontic treatment with Dr Plascencia`s office in [place] upon discharge Allergies Allergy/AdvReac Type Severity Reaction Status Date / Time latex Allergy Rash Verified 11/09/23 03:35 tizanidine [From Zanaflex] AdvReac Hallucinati Verified 11/09/23 03:35 ng Home Medications Medication Instructions Recorded Confirmed Type Magnesium L Theonate 2,100 mg PO QAM 11/09/23 11/09/23 History albuterol sulfate 90 mcg/actuation 1 puff inhalation Q4 PRN Shortness 11/09/23 11/09/23 History aerosol inhaler Of Breath Or Wheezing bisoprolol fumarate 10 mg tablet 10 mg PO HS 11/09/23 11/09/23 History cholecalciferol (vitamin D3) 125 125 mcg PO DAILY 11/09/23 11/09/23 History mcg (5,000 unit) tablet (Vitamin D3) cyclobenzaprine 10 mg tablet 20 mg PO HS 11/09/23 11/09/23 History fluticasone furoate 100 1 ea inhalation DAILY 11/09/23 11/09/23 History mcg-vilanterol 25 mcg/dose inhalation powder (Breo Ellipta) gabapentin 300 mg capsule 300 mg PO BID 11/09/23 11/09/23 History gabapentin 300 mg capsule 600 mg PO QPM 11/09/23 11/09/23 History magnesium glycinate 100 mg (as 0 mg PO DAILY 11/09/23 11/09/23 History glycinate) tablet (Mag Glycinate) melatonin 10 mg tablet 10 mg PO HS 11/09/23 11/09/23 History naproxen sodium 220 mg tablet 220 mg PO BID 11/09/23 11/09/23 History (Aleve) omeprazole 20 mg capsule,delayed 20 mg PO DAILY 11/09/23 11/09/23 History release rosuvastatin 10 mg tablet 10 mg PO 3XWK 11/09/23 11/09/23 History tramadol 50 mg tablet 50 mg PO TID PRN Pain 11/09/23 11/09/23 History Patient History Social History Smoking Status: Never smoker Hx Alcohol Use: Yes Alcohol type: wine and hard liquor Hx Substance Use: No Preferred Language: Senegalese Communication Ability: Effective Ice Carver Required: No Beliefs That Will Affect Care: None Current Living Situation: Spouse Feels Safe at Home: Yes Results & Data Vital Signs (Past 12 Hours) Vital Signs Pulse Pulse Resp BP BP Pulse Ox O2 Del Method 11/09/23 08:19 66 154/91 H 96 Nasal Cannula 11/09/23 03:27 64 18 97 Room Air 11/09/23 02:00 80 18 96 Nasal Cannula 11/09/23 01:00 84 18 171/90 H 95 Nasal Cannula O2 Flow Rate 11/09/23 08:19 11/09/23 03:27 11/09/23 02:00 2 11/09/23 01:00 2 PG Care Time/CCT Total # of Minutes Spent Total Time Spent with Patient: Total time spent is greater than 50% in coordination of care (as documented) at patient's floor/unit and/or counseling patient: Coding Level of Care Code INT OBSERVATION CARE 30M LVL 1 Diagnoses Periapical abscess K04.7 Intractable pain R52 Swelling of left side of face R22.0 Dental infection K04.7 Phlegmon L02.91
[2023-11-09] MEDS: KETOROLAC TROMETHAMINE 15 MG/ML VIAL IV ONE (12:31)
[2023-11-09] MEDS: CHLORHEXIDINE GLUCONATE 0.12% 480 ML MT SCH (18:57)
[2023-11-09] MEDS: KETOROLAC TROMETHAMINE 15 MG/ML VIAL IV PRN (19:12)
[2023-11-09] MEDS: BISOPROLOL FUMARATE 5 MG TAB PO SCH (20:13)
[2023-11-09] MEDS: CYCLOBENZAPRINE HCL 10 MG TAB PO SCH (20:13)
[2023-11-10 06:47] LABS: Basophils # (auto) 0.08 K/uL (0.00-0.20); Basophils % (auto) 1.2 %; Eosinophils # (auto) 0.15 K/uL (0.00-0.50); Eosinophils % (auto) 2.2 %; Hematocrit (blood only) 39.4 % (37.0-47.0); Hemoglobin 12.7 g/dl (12.0-16.0); Immature Granulocytes # (auto) 0.03 K/uL (0.01-0.20); Immature Granulocytes % (auto) 0.4 %; Lymphocytes # (auto) 0.93 K/uL (1.20-3.40); Lymphocytes % (auto) 13.9 %; Mean Corpuscular Hemoglobin 29.1 pg (25.0-34.0); Mean Corpuscular Hgb Conc 32.2 g/dL (32.0-36.0); Mean Corpuscular Volume 90.4 fL (80.0-100.0); Mean Platelet Volume 11.4 fL (9.4-12.4); Monocytes # (auto) 0.61 K/uL (0.11-0.59); Monocytes % (auto) 9.1 %; Neutrophils # (auto) 4.88 K/uL (1.40-6.50); Neutrophils % (auto) 73.2 %; Platelet Count 108 K/uL (130-400); RDW Coefficient of Variation 13.1 % (11.5-14.5); Red Blood Count 4.36 M/uL (4.20-5.40); White Blood Count 6.68 K/ul (4.8-10.8)
[2023-11-10 07:09] LABS: Albumin Globulin Ratio 1.6 (0.9-2); Albumin Level 3.6 gm/dl (3.4-5.0); BUN Creatinine Ratio 32.8 (10-20); Bilirubin,Total 0.6 mg/dl (0.2-1.0); Calcium 8.5 mg/dl (8.6-10.3); Creatinine Clr Calc Pharmacy 81.9 ml/min; Est GFR (African American) 108.2 ml/min; Est GFR (Non-African American) 93.4 ml/min; Globulin 2.2 gm/dl (2.5-4.0); Magnesium 1.9 mg/dl (1.7-2.4); Potassium 3.8 mmol/L (3.5-5.1); Total Protein 5.8 gm/dl (6.0-8.3)
[2023-11-10] MEDS ORDERED: PROPOFOL IV EMULSION 10 MG/ML 20 ML VIAL IV ONE (07:13)
[2023-11-10] MEDS ORDERED: LIDOCAINE 2% 2 ML VIAL/AMP(20MG/ML) INFIL ONE (07:13)
[2023-11-10] MEDS ORDERED: ONDANSETRON INJ 2 MG/ML 2 ML VIAL ONE (07:13)
[2023-11-10] MEDS ORDERED: fentaNYL citrate PF 100 MCG/2 ML VIAL ONE (07:13)
[2023-11-10] MEDS ORDERED: DEXAMETHASONE SOD INJ 4 MG/ML VIAL ONE (07:13)
[2023-11-10] MEDS ORDERED: ROCURONIUM BROMIDE 10 MG/ML 5 ML VIAL IV ONE (07:13)
--- NOTE | 2023-11-10 07:16 | Anesthesiology Consultation ---
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 History Surgery Operation Date: 11/10/23 09:00 Proposed Procedures p Incision and Drainage General - Dallin Lyons DMD Height/Weight Height: 5 ft 2 in Weight: 68.6 kg Allergies Allergy/AdvReac Type Severity Reaction Status Date / Time latex Allergy Rash Verified 11/09/23 03:35 tizanidine [From Zanaflex] AdvReac Hallucinati Verified 11/09/23 03:35 ng Medications Home Medications Medication Instructions Recorded Confirmed Last Taken Magnesium L Theonate 2,100 mg PO QAM 11/09/23 11/09/23 Unknown albuterol sulfate 90 mcg/actuation 1 puff inhalation Q4 PRN Shortness 11/09/23 11/09/23 Unknown aerosol inhaler Of Breath Or Wheezing bisoprolol fumarate 10 mg tablet 10 mg PO HS 11/09/23 11/09/23 Unknown cholecalciferol (vitamin D3) 125 125 mcg PO DAILY 11/09/23 11/09/23 Unknown mcg (5,000 unit) tablet (Vitamin D3) cyclobenzaprine 10 mg tablet 20 mg PO HS 11/09/23 11/09/23 Unknown fluticasone furoate 100 1 ea inhalation DAILY 11/09/23 11/09/23 Unknown mcg-vilanterol 25 mcg/dose inhalation powder (Breo Ellipta) gabapentin 300 mg capsule 300 mg PO BID 11/09/23 11/09/23 Unknown gabapentin 300 mg capsule 600 mg PO QPM 11/09/23 11/09/23 Unknown magnesium glycinate 100 mg (as 0 mg PO DAILY 11/09/23 11/09/23 Unknown glycinate) tablet (Mag Glycinate) melatonin 10 mg tablet 10 mg PO HS 11/09/23 11/09/23 Unknown naproxen sodium 220 mg tablet 220 mg PO BID 11/09/23 11/09/23 Unknown (Aleve) omeprazole 20 mg capsule,delayed 20 mg PO DAILY 11/09/23 11/09/23 Unknown release rosuvastatin 10 mg tablet 10 mg PO 3XWK 11/09/23 11/09/23 Unknown tramadol 50 mg tablet 50 mg PO TID PRN Pain 11/09/23 11/09/23 Unknown Active Medications Generic Name Dose Route Start Last Admin Trade Name Freq PRN Reason Stop Dose Admin Bisoprolol Fumarate 10 mg 11/09/23 21:00 11/09/23 20:13 Bisoprolol Fumarate 5 Mg Tab PO 12/09/23 20:59 10 mg HS ANJU Administration Chlorhexidine Gluconate 15 ml 11/09/23 17:40 11/09/23 20:12 Chlorhexidine Gluconate 0.12% 480 Ml MT 12/09/23 17:39 15 ml TID ANJU Administration Cyclobenzaprine HCl 20 mg 11/09/23 21:00 11/09/23 20:13 Cyclobenzaprine Hcl 10 Mg Tab PO 12/09/23 20:59 20 mg HS ANJU Administration Fluticasone/Vilanterol 1 puffs 11/09/23 09:00 11/09/23 08:52 Fluticasone/Vilanterol 100/25mcg 14 Puffs/Inhaler INH 12/09/23 08:59 1 puffs DAILY ANJU Administration Gabapentin 600 mg 11/09/23 09:00 11/09/23 20:12 Gabapentin 300 Mg Cap PO 12/09/23 08:59 600 mg BID ANJU Administration Gabapentin 300 mg 11/09/23 14:00 11/09/23 15:28 Gabapentin 300 Mg Cap PO 12/09/23 13:59 300 mg Q24H ANJU Administration Ampicillin Sodium/Sulbactam 100 mls @ 100 mls/hr 11/09/23 05:00 11/10/23 04:35 Sodium 3,000 mg/ Sodium IV 11/19/23 04:59 Infused Chloride Q6H ANJU Infusion Ketorolac Tromethamine 15 mg 11/09/23 17:30 11/10/23 03:28 Ketorolac Tromethamine 15 Mg/Ml Vial IV 11/14/23 17:29 15 mg Q6H PRN Administration Pain Morphine Sulfate 3 mg 11/09/23 02:13 11/10/23 06:24 Morphine Sulfate 4 Mg/Ml 1 Ml Carp\Vial IV 11/23/23 02:12 3 mg Q4H PRN Administration Severe Pain (Scale 7, 8, 9,10) Pantoprazole Sodium 40 mg 11/09/23 09:00 11/09/23 08:52 Pantoprazole 40 Mg Tab PO 12/09/23 08:59 40 mg DAILY ANJU Administration Tramadol HCl 50 mg 11/09/23 02:13 11/10/23 05:40 Tramadol Hcl 50 Mg Tablet PO 12/09/23 02:12 50 mg TID PRN Administration Moderate Pain (Scale 4, 5, 6) Social History Smoking Status: Never smoker Hx Alcohol Use: Yes Alcohol type: wine and hard liquor alcohol intake frequency: holidays/special occasions only Hx Substance Use: No Physical Exam Vital Signs Last Vital Signs Temp 97.7 F 11/10/23 04:01 Pulse 78 11/10/23 04:13 Resp 20 11/10/23 04:01 BP 132/79 11/10/23 04:13 Pulse Ox 91 11/10/23 04:01 O2 Del Method Nasal Cannula 11/10/23 04:01 O2 Flow Rate 3 11/09/23 20:10 Testing Laboratory Results 11/10/23 06:23 11/10/23 06:23 Hemoglobin A1c 5.3 % (4.5-5.6) 11/09/23 05:58 Chest X-Ray Date: 11/09/23 Findings: + NAD
[2023-11-10] MEDS ORDERED: ATROPINE SULFATE 0.1 MG/ML 10ML SYR IV PRN (07:41)
[2023-11-10] MEDS ORDERED: fentaNYL citrate PF 100 MCG/2 ML VIAL IV PRN (07:41)
[2023-11-10] MEDS ORDERED: ONDANSETRON INJ 2 MG/ML 2 ML VIAL IV PRN (07:41)
[2023-11-10] MEDS ORDERED: ePHEDrine sulfate 50 MG/ML AMP IV PRN (07:41)
--- NOTE | 2023-11-10 07:42 | History & Physical Bridge Note ---
Date of Service November 10, 2023 History & Physical Bridge Note I have examined the patient, reviewed the History & Physical and in the interval since the performance of the History & Physical I have noted the following changes of clinical significance: no changes noted. As expected there is more swelling and pain this AM with more fluctuance. I&D is medically necessary.
--- NOTE | 2023-11-10 08:00 | Hospitalist Progress Note ---
Date of Service November 10, 2023 Assessment & Plan (1) Periapical abscess: Plan: Dental infection/phlegmon/periapical abscess/swelling and pain left side of face- CT soft tissue/neck w/ findings concerning for periapical abscess about tooth #19 with adjacent periosteal phlegmon. Recommend dental consult. Dr Lyons consulted, given liquid diet last evening, NPO at midnight s/p Incision and Drainage of Left Subperiosteal and Submandibular Abscess(Left) - Dallin Lyons, DMD OR cx pending Unasyn IV, continued Pain control: Tramadol PO prn, Morphine/Toradol available IV prn. Can add back PO oxy if effective now that abscess drained Antiemetics as needed Diet per Dr Lyons/advancement as tolerated Continued inpatient stay for pain control despite patient was hopeful for discharge however she notes ongoing need for pain control and will moniotr overnight/follow up cultures and suspect able to dc in AM w/ PO abx/oral pain control. Planning for outpatient root canal on that tooth with Dr Plascencia in [place] (2) Pulmonary fibrosis: Plan: Pulmonary fibrosis/hypersensitivity pneumonitis- Continue nasal cannula O2, with titration goal 92% Continue routine inhalers Breo ellipta DuoNebs every 2 hours as needed, in particular premedication prior to receiving morphine Incentive spirometer added Toradol added for pain control given suspect will be more effective. morphine available prn w/ supp o2 to maintain sats. 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/history of spina bifida/left lower extremity radiculopathy- Continue gabapentin and tramadol, toradol as above Order for patient to be able to st cath self as done at home placed and has been doing without issue (5) Phlegmon: (6) Intractable pain: Plan: as above, continued inpatient stay for pain control but hopefully not that s/p I&D will have improvement (7) Swelling of left side of face: (8) Dental infection: (9) Lumbar back pain with radiculopathy affecting left lower extremity: (10) GERD (gastroesophageal reflux disease): Plan: ppi daily continued , no issues reported (11) Neurogenic bladder: Plan: order for st 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 Had some increased pain/swelling this morning prior to procedure. OR went well, no need for drain but does have some ongoing pain issues needing addressed and continued antibiotics. Didn't end up needing to remove her bridge. Discontinuing telemetry as had been stable. Has O2 drops w/ morphine but no increased SOB. RN to provider IS. Has been CIC herself. Plan for dc in AM if pain controlled and tolerating diet. Questions/concerns addressed at this time. Physical Exam Physical Exam: General: 72yo female laying in bed post-op, on 2L NC, +L sided facial swelling/redness, mildly uncomfortable/would like something for pain HEENT: incision to left lower posterior aspect of tooth #19, sutures in place, scant bleeding no drain +left sided swelling/redness, slightly worse than day prior, mm improved Resp: even/unlabored, slightly diminished in the bases, on 2L NC post-op (asked RN to provide incentive spirometer) CV: RRR, no significant m/r/g, no pitting edema GI: +BS, soft/NT MSK/Neuro: no slurred speech/facial droop, answering questions appropriately. able to follow commands as asked Psych: AOx3, cooperative Results & Data Results & Data Vital Signs (Past 12 Hours) Vital Signs Temp Pulse Resp BP Pulse Ox O2 Del Method O2 Flow Rate 11/10/23 04:13 78 132/79 11/10/23 04:01 36.5 C 93 H 20 173/84 H 91 Nasal Cannula 11/09/23 23:20 36.7 C 70 20 120/75 92 Nasal Cannula 11/09/23 20:10 93 Nasal Cannula 3 Laboratory Results 11/10/23 Range/Units 06:23 WBC 6.68 (4.8-10.8) K/ul RBC 4.36 (4.20-5.40) M/uL Hgb 12.7 (12.0-16.0) g/dl Hct 39.4 (37.0-47.0) % MCV 90.4 (80.0-100.0) fL MCH 29.1 (25.0-34.0) pg MCHC 32.2 (32.0-36.0) g/dL RDW Std Deviation 43.0 (36.4-46.3) fL RDW Coeff of [place] 13.1 (11.5-14.5) % Plt Count 108 L (130-400) K/uL MPV 11.4 (9.4-12.4) fL Immature Gran % (Auto) 0.4 % Neut % (Auto) 73.2 % Lymph % (Auto) 13.9 % [place] % (Auto) 9.1 % Eos % (Auto) 2.2 % Baso % (Auto) 1.2 % Neut # (Auto) 4.88 (1.40-6.50) K/uL Lymph # (Auto) 0.93 L (1.20-3.40) K/uL [place] # (Auto) 0.61 H (0.11-0.59) K/uL Eos # (Auto) 0.15 (0.00-0.50) K/uL Baso # (Auto) 0.08 (0.00-0.20) K/uL Immature Gran # (Auto) 0.03 (0.01-0.20) K/uL Sodium 143 (136-145) mmol/L Potassium 3.8 (3.5-5.1) mmol/L Chloride 108 H (98-107) mmol/L Carbon Dioxide 30 (21-32) mmol/L Anion Gap 5 (3-11) BUN 19 (6-23) mg/dl Creatinine 0.58 L (0.6-1.2) mg/dl Est Cr Clr Drug Dosing 81.9 ml/min Est GFR ( Amer) 108.2 ml/min Est GFR (Non-Af Amer) 93.4 ml/min BUN/Creatinine Ratio 32.8 H (10-20) Glucose 94 (70-99(Fasting)) mg/dl Calcium 8.5 L (8.6-10.3) mg/dl Magnesium 1.9 (1.7-2.4) mg/dl Total Bilirubin 0.6 (0.2-1.0) mg/dl AST 17 (13-39) U/L ALT 10 (7-52) U/L Alkaline Phosphatase 79 (34-104) U/L Total Protein 5.8 L (6.0-8.3) gm/dl Albumin 3.6 (3.4-5.0) gm/dl Globulin 2.2 L (2.5-4.0) gm/dl Albumin/Globulin Ratio 1.6 (0.9-2) PG Care Time/CCT Total # of Minutes Spent Total Time Spent with Patient: Total time spent is greater than 50% in coordination of care (as documented) at patient's floor/unit and/or counseling patient: Coding Level of Care Code 79009 SUB INP/OBS CARE 3/50MIN Diagnoses Periapical abscess K04.7 Pulmonary fibrosis J84.10 Hypertension I10 History of tethered spinal cord Z86.69 Phlegmon L02.91 Intractable pain R52 Swelling of left side of face R22.0 Dental infection K04.7 Lumbar back pain with radiculopathy affecting left lower extremity M54.16 GERD (gastroesophageal reflux disease) K21.9 Neurogenic bladder N31.9
[2023-11-10] MEDS ORDERED: ePHEDrine sulfate 50 MG/5 ML SYR ONE (08:13)
[2023-11-10] MEDS ORDERED: PHENYLEPHRINE 100MCG/ML 10ML SYR IV ONE (08:13)
[2023-11-10] MEDS ORDERED: SUGAMMADEX SODIUM 200 MG/2 ML VIAL IV ONE (08:14)
[2023-11-10] MEDS: BUPIVACAINE/EPINEPHRINE 0.5% 1:200,000 1.8 ML CARP ONE (08:34)
--- NOTE | 2023-11-10 08:49 | Operative Report ---
PG Post Operative Report Pre & Post Diagnosis Operation Date: 11/10/23 09:00 Pre-Op Diagnosis: Left Subperiosteal and Submandibular Abscess Post-Op Diagnosis: Left Subperiosteal and Submandibular Abscess I identified the patient and participated in the time-out.: Yes Procedure Operation Date: 11/10/23 09:00 Actual Procedures p Incision and Drainage of Left Subperiosteal and Submandibular Abscess(Left) - Dallin Lyons DMD Surgeon Dallin Lyons DMD Patient Care Associate none Estimated Blood Loss 1 Findings Consistent with Post-Op Diagnosis swollen mucobuccal and submandibular space left side Specimens I&D left side Anesthesia Type General Complications none Disposition Disposition: Recovery Room Indications acute pain and swelling left side of the face failed out patient pain and antib iotic control Description of Procedure p Incision and Drainage left mandibular vestibule and submandibular space Abscess; - Dallin Lyons DMD ICD 10 K12.2 , L03.211 CPT 23981 I & D of vestibule of left mandibular subperiosteal and submandibular space Once cleared for surgery general anesthesia was achieved, the eyes were protected by the anesthesia dept criteria. A time out was take for patient ID, antibiotics, equipment and position verification once all agreed the procedure began. Local anesthesia using Marcaine with a vasoconstrictor ( 1.8 ml per site) given into left posterior mandible A throat pack was placed after the oral cavity was irrigated with saline. Once a surgical level of anesthesia was obtained and the local anesthesia was given time for the blocks the surgery was started. I turned my attention to the infection which was located in the in the lower left vestibule and submandibular space secondary to an abscessed # 19 CT scan report--1. 1.9 x 1.3 cm rim-enhancing left facial fluid collection along the lateral aspect of the left maxilla. This favors a small abscess. This is odontogenic although definitive source is not identified on this exam Incision and Drainage Using a 15 blade an incision was made in the posterior aspect of the vestibular area lower left side. This incision was used to gain access to the pocket of pus in the vestibule. This allowed the bulk of the drainage to escape. Once the incision was made a lot of pus extruded from the site. This drainage was cultured for anaerobic and aerobic bacteria. A curved hemostat was carefully placed inferior into the infected space to drain the lateral side of the mandibular bone at the inferior boarder and into the submandibular space. I palpated the face and jaw areaand no further drainage was expressed. The area was irrigated with at least 100 ml of NS with Peridex solution. No drain was not needed I inspected the sites to insure all bleeding was controlled. I removed the throat pack and suctioned the throat. A gauze pressure dressings was placed. All instrument and sponge count was correct. The patient was allowed to awake from the anesthesia. Once full awake the anesthesia tube was removed and the patient was taken to the recovery room with all vital sign stable. The patient tolerated the surgery very well. Rx and instructions will be given upon discharge. Amanda will be referred for endodontic treatment once the acute infection is controlled. I attest to the content of the Intraoperative Record and any orders documented therein. Any exceptions are noted below.
--- NOTE | 2023-11-10 09:34 | Anesthesiology Progress Note ---
Date of Service November 10, 2023 Anesthesia Post Procedure Vital Signs Vital Signs: Temp Pulse Pulse Pulse Resp BP Pulse Ox 11/10/23 09:14 97.5 F L 72 21 151/84 H 98 11/10/23 09:05 73 20 157/77 H 98 11/10/23 08:55 75 16 137/79 99 11/10/23 08:45 78 19 127/93 99 11/10/23 08:39 97.3 F L 76 22 137/71 97 11/10/23 04:13 78 132/79 11/10/23 04:01 97.7 F 93 H 20 173/84 H 91 11/09/23 23:20 98.1 F 70 20 120/75 92 11/09/23 20:10 93 11/09/23 19:37 98.2 F 86 20 120/59 L 89 L 11/09/23 15:40 97.5 F L 67 16 127/76 95 11/09/23 14:12 66 11/09/23 13:43 75 O2 Del Method O2 Flow Rate 11/10/23 09:14 Nasal Cannula 2 11/10/23 09:05 Nasal Cannula 2 11/10/23 08:55 Nasal Cannula 4 11/10/23 08:45 Nasal Cannula 4 11/10/23 08:39 Nasal Cannula 4 11/10/23 04:13 11/10/23 04:01 Nasal Cannula 11/09/23 23:20 Nasal Cannula 11/09/23 20:10 Nasal Cannula 3 11/09/23 19:37 Room Air 11/09/23 15:40 Nasal Cannula 2 11/09/23 14:12 11/09/23 13:43 Pain Intensity Face: Pain Intensity: 9 Left Mouth: Pain Intensity: 4 Transfer of Care Handoff Completed per policy Notes Mental Status: alert / awake / arousable and participated in evaluation Patient Amnestic to Procedure: Yes Nausea / Vomiting: adequately controlled Pain: adequately controlled Airway Patency, RR, SpO2: stable & adequate BP & HR: stable & adequate Hydration State: stable & adequate Anesthetic Complications: no major complications apparent and Pt Satisfied with anesthetic care
[2023-11-10] MEDS: oxyCODONE HCL IR 5 MG TAB (IMMEDIATE RELEASE) PO PRN (17:48)
[2023-11-10 20:09] VITALS: RESP 18
--- NOTE | 2023-11-10 21:28 | Electrocardiogram Report ---
Test Reason : Blood Pressure : / mmHG Vent. Rate : 073 BPM Atrial Rate : 073 BPM P-R Int : 158 ms QRS Dur : 076 ms QT Int : 432 ms P-R-T Axes : 119 127 137 degrees QTc Int : 475 ms Normal sinus rhythm Limb lead reversal Right axis deviation Abnormal ECG No previous ECGs available Confirmed by Eric Pittman ([id number]) on 11/10/2023 9:28:10 PM Referred By: REFERRED SELF Confirmed By:Eric Pittman
--- NOTE | 2023-11-11 07:53 | Hospitalist Progress Note ---
Date of Service November 11, 2023 Assessment & Plan (1) Periapical abscess: Plan: Dental infection/phlegmon/periapical abscess/swelling and pain left side of face- CT soft tissue/neck w/ findings concerning for periapical abscess about tooth #19 with adjacent periosteal phlegmon. Recommend dental consult. Dr Lyons consulted, given liquid diet last evening, NPO at midnight s/p Incision and Drainage of Left Subperiosteal and Submandibular Abscess(Left) - Dallin Lyons, DMD OR cx pending - GS w/ rare WBC/no organism seen Unasyn IV, continued Pain control: Tramadol PO prn, Morphine/Toradol available IV prn. Can add back PO oxy if effective now that abscess drained Antiemetics as needed Diet per Dr Lyons/advancement as tolerated Continued inpatient stay for pain control despite patient was hopeful for discharge however she notes ongoing need for pain control and will monitor overnight/follow up cultures and suspect able to dc in AM w/ PO abx/oral pain control. Planning for outpatient root canal on that tooth with Dr Plascencia in [place] 11/10 WBC wnl, afebrile. Remains on Unasyn IV. OR cx GS rare WBC/no organism seen Pain control: Oxycodone, Toradol/Morphine available as needed. Appears decreased needs, took 2 doses toradol on 11/09, 1 dose this morning. 1 dose of oxy yesterday but has not required any further morphine -- On room air, incentive spirometry encouraged. CXR on admit w/ R huyen- diaphragm elevation/hx pulm fibrosis (2) Pulmonary fibrosis: Plan: Pulmonary fibrosis/hypersensitivity pneumonitis- Continue nasal cannula O2, with titration goal 92% Continue routine inhalers Breo ellipta DuoNebs every 2 hours as needed, in particular premedication prior to receiving morphine Incentive spirometer added Toradol added for pain control given suspect will be more effective. morphine available prn w/ supp o2 to maintain sats. 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/history of spina bifida/left lower extremity radiculopathy- Continue gabapentin and tramadol, toradol as above Order for patient to be able to st cath self as done at home placed and has been doing without issue (5) Phlegmon: (6) Intractable pain: Plan: as above, continued inpatient stay for pain control but hopefully not that s/p I&D will have improvement (7) Swelling of left side of face: (8) Dental infection: (9) Lumbar back pain with radiculopathy affecting left lower extremity: (10) GERD (gastroesophageal reflux disease): Plan: ppi daily continued , no issues reported (11) Neurogenic bladder: Plan: order for st 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, 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/pain control but hopeful dc in AM 11/10 if pain/exam improved with plans for outpatient follow up with Dr Plascencia for root canal to preserve her tooth Admission and Anticipated Discharge Date Admission Date: November 09, 2023 Results & Data Results & Data Vital Signs (Past 12 Hours) Vital Signs Temp Pulse Pulse Resp BP Pulse Ox O2 Del Method 11/11/23 07:08 36.5 C 74 18 129/74 90 Room Air 11/11/23 02:59 36.4 C L 63 18 129/71 90 Room Air 11/10/23 22:22 36.4 C L 65 18 108/64 92 Room Air PG Care Time/CCT Total # of Minutes Spent Total Time Spent with Patient: Total time spent is greater than 50% in coordination of care (as documented) at patient's floor/unit and/or counseling patient: Coding Diagnoses Periapical abscess K04.7 Pulmonary fibrosis J84.10 Hypertension I10 History of tethered spinal cord Z86.69 Phlegmon L02.91 Intractable pain R52 Swelling of left side of face R22.0 Dental infection K04.7 Lumbar back pain with radiculopathy affecting left lower extremity M54.16 GERD (gastroesophageal reflux disease) K21.9 Neurogenic bladder N31.9
[2023-11-11] MEDS: ROSUVASTATIN CALCIUM 10 MG TAB PO SCH (08:15)
[2023-11-11 08:33] LABS: Basophils # (auto) 0.02 K/uL (0.00-0.20); Basophils % (auto) 0.3 %; Eosinophils # (auto) 0.02 K/uL (0.00-0.50); Eosinophils % (auto) 0.3 %; Hematocrit (blood only) 36.7 % (37.0-47.0); Hemoglobin 12.2 g/dl (12.0-16.0); Immature Granulocytes # (auto) 0.02 K/uL (0.01-0.20); Immature Granulocytes % (auto) 0.3 %; Lymphocytes # (auto) 0.97 K/uL (1.20-3.40); Lymphocytes % (auto) 13.4 %; Mean Corpuscular Hemoglobin 29.3 pg (25.0-34.0); Mean Corpuscular Hgb Conc 33.2 g/dL (32.0-36.0); Mean Platelet Volume 11.5 fL (9.4-12.4); Monocytes # (auto) 0.61 K/uL (0.11-0.59); Monocytes % (auto) 8.4 %; Neutrophils # (auto) 5.58 K/uL (1.40-6.50); Neutrophils % (auto) 77.3 %; Platelet Count 113 K/uL (130-400); RDW Coefficient of Variation 12.8 % (11.5-14.5); RDW Standard Deviation 41.1 fL (36.4-46.3); Red Blood Count 4.17 M/uL (4.20-5.40); White Blood Count 7.22 K/ul (4.8-10.8)
[2023-11-11 08:47] LABS: Est GFR (African American) 108.2 ml/min; Potassium 3.8 mmol/L (3.5-5.1)
[2023-11-11 08:48] LABS: Albumin Globulin Ratio 1.5 (0.9-2); Albumin Level 3.4 gm/dl (3.4-5.0); BUN Creatinine Ratio 25.9 (10-20); Bilirubin,Total 0.6 mg/dl (0.2-1.0); Calcium 8.6 mg/dl (8.6-10.3); Est GFR (Non-African American) 93.4 ml/min; Globulin 2.2 gm/dl (2.5-4.0); Magnesium 1.9 mg/dl (1.7-2.4); Total Protein 5.6 gm/dl (6.0-8.3)
[2023-11-11 11:10] VITALS: TEMP 97.9; O2SAT 93
--- NOTE | 2023-11-11 11:24 | Discharge Summary ---
Discharge Summary Date of Service November 11, 2023 Principal Dx & Hospital Course #1 = Principal Diagnosis (1) Periapical abscess: Dental infection/phlegmon/periapical abscess/swelling and pain left side of face- 72yo female presented with worsening pain to her left face x 2 nights following being seen by dentis who performed xrays and recommended root canal and was placed on medrol dose pack and amoxicillin by dentist but presented to ER due to worsened/uncontrolled pain w/ tramadol/oxycodone at home concerning for worsening infection. CT soft tissue/neck w/ findings concerning for periapical abscess about tooth #19 with adjacent periosteal phlegmon. Recommend dental consult. Dr Lyons consulted s/p Incision and Drainage of Left Subperiosteal and Submandibular Abscess(Left) on 11/09 OR cx gram negative bacilli on preliminary Unasyn IV while inpatient and pain control with IV morphine/toradol w/ decreased pain control needs overnight/swelling Continue abx with Augmentin for total 10 day course discussed with Dr Lyons given OR cx At discharge, tolerating liquid diet and to advance as tolerated to dental soft. Continue mouth rinse/oral care and planning to have patient follow up with Dr Plascencia in [place] for root canal to preserve her tooth. Patient titrated to room air without SOB, CXR negative and hx pulm fibrosis but had some drops w/ morphine which resolved w/ improvement in pain control. Did send short rx for toradol for antiinflammatory/pain control at pa and discussed avoid other NSAIDs while on such WBC wnl/afebrile at time of discharge and to return to ER with any fever/chills, CP/SOB, inability to tolerate oral intake or for worsening pain/swelling/redness (2) Pulmonary fibrosis: Pulmonary fibrosis/hypersensitivity pneumonitis- Continue nasal cannula O2, with titration goal 92%, home meds with breo/etc, duonebs as needed CXR negative, suspect drops intermittent w/ morphine, no SOB. Incentive spirometer ordered/encouraged and decreased O2 needs w/ 93% on RA prior to dc (3) Hypertension: BP 123/65 at dc and remained on Bisoprolol 10mg daily while inpatient. 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 has been doing without issue Plan discharged home on Augmentin/toradol for pain. 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 She presents to the emergency department symptoms as noted above. Due to pain not being controlled by morphine, Toradol and Tylenol, she was referred for evaluation for admission to the medical service Admission Exam Per Admitting Provider The patient is awake, alert and oriented 3, well developed and well nourished, normocephalic and atraumatic, lying in bed and in no acute distress. HEENT--PERRL, EOMI, mucous membranes and oropharynx dry. Mild left-sided facial swelling and tenderness Neck--supple. No JVD. No bruits. Thyroid normal, trachea midline, no adenopathy. Heart--normal S1 and S2. No murmurs, rubs or gallops. Lungs--clear bilaterally, no respiratory distress, no accessory muscle use. Abdomen--normal bowel sounds and soft. Nontender. Nondistended, no hernias or masses, no organomegaly. Extremities--no cyanosis or clubbing. No edema. Dermatologic--normal skin turgor, normal color, no abnormal lymph nodes, no rash. Neurologic--cranial nerves II through XII grossly intact. Rheumatologic--normal range of motion. Psychiatric--normal affect. Discharge Exam General: 72yo female sitting up in bed, much improved/NAD and wanting to go home HEENT: significant improvement in erythema/swelling to LEFT face, still with some tenderness to mandible on that side mouth w/ dissolvable sutures in place, decreased swelling, mildly tender but no active drainage/issues trachea midline Resp: unlabored, no w/c/r, on room air, no tachpnea CV: RRR, no significant m/r/g, no pitting edema GI: +BS, soft/NT MSK/Neuro: no slurred speech/facial droop, answering questions appropriately. able to follow commands as asked Psych: AOx3, cooperative Updated Medication List Medication Instructions Recorded Confirmed Type Magnesium L Theonate 2,100 mg PO QAM 11/09/23 11/09/23 History albuterol sulfate 90 mcg/actuation 1 puff inhalation Q4 PRN Shortness 11/09/23 11/09/23 History aerosol inhaler Of Breath Or Wheezing bisoprolol fumarate 10 mg tablet 10 mg PO HS 11/09/23 11/09/23 History cholecalciferol (vitamin D3) 125 125 mcg PO DAILY 11/09/23 11/09/23 History mcg (5,000 unit) tablet (Vitamin D3) cyclobenzaprine 10 mg tablet 20 mg PO HS 11/09/23 11/09/23 History fluticasone furoate 100 1 ea inhalation DAILY 11/09/23 11/09/23 History mcg-vilanterol 25 mcg/dose inhalation powder (Breo Ellipta) gabapentin 300 mg capsule 300 mg PO BID 11/09/23 11/09/23 History gabapentin 300 mg capsule 600 mg PO QPM 11/09/23 11/09/23 History magnesium glycinate 100 mg (as 0 mg PO DAILY 11/09/23 11/09/23 History glycinate) tablet (Mag Glycinate) melatonin 10 mg tablet 10 mg PO HS 11/09/23 11/09/23 History naproxen sodium 220 mg tablet 220 mg PO BID 11/09/23 11/09/23 History (Aleve) omeprazole 20 mg capsule,delayed 20 mg PO DAILY 11/09/23 11/09/23 History release rosuvastatin 10 mg tablet 10 mg PO 3XWK 11/09/23 11/09/23 History tramadol 50 mg tablet 50 mg PO TID PRN Pain 11/09/23 11/09/23 History amoxicillin 875 mg-potassium 1 tab PO BID 8 days #15 tabs 11/11/23 Rx clavulanate 125 mg tablet chlorhexidine gluconate 0.12 % 15 ml MT TID #0 mL 11/11/23 Rx mouthwash ketorolac 10 mg tablet 10 mg PO Q8H PRN pain #10 tabs 11/11/23 Rx Hospital Stay Data Consultations 11/08/23 23:46 ED Decision to Admit Stat 11/09/23 04:12 Consult Oromaxillofacial Surgery Routine Procedures Performed Operation Date: 11/10/23 09:00 Actual Procedures p Incision and Drainage of Left Subperiosteal and Submandibular Abscess(Left) - Dallin Lyons DMD Diagnostic Imagining Performed Soft Tissue Neck CT 11/09/23 00:08 Exam(s): CT NECK With Contrast IV Amt: 94 ml EXAM: CT Neck With Intravenous Contrast CLINICAL HISTORY: Reason for exam: L sided facial pain. TECHNIQUE: Axial computed tomography images of the neck with intravenous contrast. CTDI is 17.44 mGy and DLP is 443.61 mGy-cm. Automated exposure control was utilized for the study. A dose lowering technique was utilized adhering to the principles of ALARA. CONTRAST: Patient received 94 ml of IV contrast COMPARISON: No relevant prior studies available. FINDINGS: Oropharynx: Unremarkable. No significant tonsillar enlargement. No peritonsillar abscess. Hypopharynx: Unremarkable. Larynx: Unremarkable. Normal epiglottis. Trachea: Unremarkable. Retropharyngeal space: Unremarkable. Submandibular/parotid glands: Unremarkable. Glands are normal in size. Thyroid: Unremarkable. No enlarged or calcified nodules. Bones/joints: No acute fracture... Deon lucency about tooth #19 concerning for periapical abscess. Soft tissues: There is mild soft tissue swelling about the left lateral mandible concerning for inflammatory phlegmon from abscess tooth #19. Face. Vasculature: No acute findings. Lymph nodes: Unremarkable. No lymphadenopathy. Lung apices: Unremarkable as visualized. IMPRESSION: Findings concerning for periapical abscess about tooth #19 with adjacent periosteal phlegmon. Recommend dental consult. Electronically signed by: Lillian Abernathy MD 11/09/23 02:11 AM Chest X-Ray 11/09/23 07:40 XR chest 1V portable HISTORY: 72 years-old Female potential OR, pre-op preoperative exam COMPARISON: None TECHNIQUE: AP view of the chest FINDINGS: Cardiomediastinal select the normal limits. Right hemidiaphragmatic elevation. Sigmoidal thoracolumbar scoliosis. No pneumothorax, pleural effusion or airspace consolidation. IMPRESSION: No acute process. ACT 112: Negative or not required by law. The above report was generated using voice recognition software. It may contain grammatical, syntax or spelling errors. Electronically signed by: Tim Yee M.D. 11/09/2023 8:02 AM Pending Results Patient Have Any Pending Studies at Discharge: Yes Discharge Instructions Given to Patient (Per Discharging Provider) You have been hospitalized for facial pain concerning for infection. Imaging noted a periapical abscess about tooth #19 with adjacent phlegmon. We have treated you with IV antibiotics and Dr Lyons was consulted and you underwent incision and drainage 11/09. Cultures show gram negative bacilli on preliminary. This was discussed with Dr Lyons and we are going to send you on AUGMENTIN twice daily for total 10 days. We gave first done in the hospital of oral medication and will have another dose this evening and then for the next 7 days to complete the course. You should continue mouth rinse at discharge several times daily to help keep the area clean and continue to advance diet full liquids --> dental soft as tolerated. At discharge, you are to follow up with Dr Plascencia at [place] for a root canal on this tooth in order to preserve your own teeth rather than extraction. For pain control, we are continuing short prescription for toradol as needed. Please avoid other NSAIDs during this time such as your naproxen. Continue mouth rinse three times daily. Please follow up with primary care in the next 7-10 days after discharge to monitor your status after hospitalization. Please follow up with Dr Plascencia as discussed by Dr Lyons for the root canal. Please stay hydrated/push oral fluids to keep yourself hydrated. Please return to the ER with any fever/chills, increased pain/redness/swelling, trouble breathing, or for any other issues concerning for you. It has been a pleasure being a part of the medical team providing for you while you have been in the hospital. Take care! ADDITIONAL ACTIVITY RECOMMENDATIONS: * Mercer teeth after every meal. It is very important to keep your mouth clean to prevent infection. * Starting tonight rinse with the Peridex as directed then 2 x a day * it is very important to keep well hydrated SPECIAL CARE INSTRUCTIONS: *It is not uncommon that between day 2-4 that your swelling will be at its worst this is very normal, do not be alarmed. * Please apply heat (hot water bottle or heating pad) for the next two days, as often as possible. * You may experience slight nausea. To prevent this, never take your medication on an empty stomach. If nauseated, take small sips of dandy [place] until you feel better; then you may start on applesauce and toast. * Some swelling is common. It should gradually decrease within 4-5 days. * A certain amount of bleeding is to be expected. It is often possible to control mild oozing by placing folded gauze over the area and biting down for 30 minutes. If you are unable to control excessive bleeding, call Dr Lyons at [phone]-syal * You may experience some discomfort for a few days. If pain or swelling increases, Call Dr Lyons * It will not be necessary to see Dr Lyons for follow up as you will need to contact Dr Plascencia the grain receiver in [place] for the root canal on # 19 * In case you need to discuss anything with Dr. Lyons office address--[address] phone # [phone] Total Time Total Time Spent Total Time Spent (In Minutes): 45 Coding Level of Care Code 31208 INP/OBS DISCH >30 MIN Diagnoses Periapical abscess K04.7 Pulmonary fibrosis J84.10 Hypertension I10 History of tethered spinal cord Z86.69 Phlegmon L02.91 Intractable pain R52 Swelling of left side of face R22.0 Dental infection K04.7 Lumbar back pain with radiculopathy affecting left lower extremity M54.16 GERD (gastroesophageal reflux disease) K21.9 Neurogenic bladder N31.9
--- NOTE | 2023-11-11 11:47 | Oral/Maxillofacial Progress Nt ---
Date of Service November 11, 2023 Assessment & Plan Admission and Anticipated Discharge Date Admission Date: November 09, 2023 Subjective Post Op infection evaluation 24 hours The infected area has improved greatly from the surgical intervention. Swelling is almost gone and the tissue is back to normal in size and texture. No further drainage is noted. Cultures were reviewed. Infection has responded very well to the antibiotics and the I and D. I requested that the patient continue with massage, heat and wound care. At this time the area is well healed and responded well to treatment, no further surgical treatment needed. Will need to make an appointment with the [facility] in [facility] for discharge--Augmentin x 10 days and Toradol for a few days for breakout pain. RTC as needed to see Dr Lyons, otherwise follow up with [facility] Results & Data Vital Signs (Past 12 Hours) Vital Signs Temp Pulse Pulse Resp BP Pulse Ox O2 Del Method 11/11/23 11:10 36.6 C 69 18 123/65 93 Room Air 11/11/23 07:08 36.5 C 74 18 129/74 90 Room Air 11/11/23 02:59 36.4 C L 63 18 129/71 90 Room Air PG Care Time/CCT Total # of Minutes Spent Total Time Spent with Patient: Total time spent is greater than 50% in coordination of care (as documented) at patient's floor/unit and/or counseling patient: Coding Level of Care Code None
[2023-11-11] MEDS: AMOXICILLIN/CLAVULANATE 875 MG TAB PO ONE (12:13)
[2023-11-11 12:22] VITALS: BP 126/76; PULSE 80
== END 2023-11-11 12:44 | disposition home or self-care (01) ==
LOC: EDINP 19:18 → ED 19:18 → SUATTDRO 11-09 01:40 → EDINP 11-09 02:13 → 2W 11-09 11:59
DX: K12.2 Cellulitis and abscess of mouth; J84.10 Pulmonary fibrosis, unspecified; Z79.899 Other long term (current) drug therapy; K04.7 Periapical abscess without sinus; M86.8X8 Other osteomyelitis, other site; I10 Essential (primary) hypertension; Z86.69 Personal history of other diseases of the nervous system and sense organs; M54.16 Radiculopathy, lumbar region; K21.9 Gastro-esophageal reflux disease without esophagitis; Z88.8 Allergy status to other drugs, medicaments and biological substances; N31.9 Neuromuscular dysfunction of bladder, unspecified; Q05.7 Lumbar spina bifida without hydrocephalus; Z91.040 Latex allergy status